=== PATIENT | male | born 1965 | race Caucasian/White ===

== ENCOUNTER 2018-08-13 13:37 | Emergency (ER) | payer OTHER ==
[2018-08-13] MEDS: IBUPROFEN 800 MG TAB PO (14:42)
== END 2018-08-13 16:14 | disposition home or self-care (01) ==
LOC: FTE 13:37
DX: S62.336A Displaced fracture of neck of fifth metacarpal bone, right hand, initial encounter for closed fracture (principal); F17.210 Nicotine dependence, cigarettes, uncomplicated; W10.8XXA Fall (on) (from) other stairs and steps, initial encounter; Y92.9 Unspecified place or not applicable
CPT/HCPCS: 29125; 73110-RT; 73130-RT